=== PATIENT | female | born 1975 | race American Indian/Alaskan Native ===

== ENCOUNTER 2021-09-04 02:20 | Emergency (ER) | payer SELFPAY ==
[2021-09-04 02:44] VITALS: BP 162/87
[2021-09-04] MEDS ORDERED: HYDROcodone/ACETAMINOPHEN 5-325 MG TAB PO STA (02:58)
--- NOTE | 2021-09-04 03:01 | Emergency Department Report ---
ED Extremity Problem HPI - General Chief complaint: Extremity Injury, Lower Stated complaint: LT ANKLE PAIN Source: patient Mode of arrival: Ambulatory Limitations: No Limitations - History of Present Illness Initial comments: 45-year-old female [employer] [facility] emerge department complaining of a mechanical trip and fall in her home about 3 hours prior to arrival resulting in an inversion type twisting maneuver of the left ankle causing pain swelling and was significantly worsens with palpation and ambulation/weightbearing. She reports no numbness or tingling. No no pre-existing injury no prior injury. She reports no snap or pop MD Complaint: extremity pain, extremity swelling Location: lower extremity History of Same: No Worsens with: weight bearing, palpation - Related Data Previous Rx's Medication Instructions Recorded Last Taken Type Acetaminophen/Codeine [Tylenol 1 tab PO Q6H PRN #14 tab 09/04/21 Unknown Rx /Codeine # 3 tab] Allergies Allergy/AdvReac Type Severity Reaction Status Date / Time No Known Allergies Allergy Unverified 09/04/21 02:45 ED Review of Systems ROS: Stated complaint: LT ANKLE PAIN Other details as noted in HPI Comment: All other systems reviewed and negative ED Past Medical Hx - Past Medical History Previous Medical History?: No - Surgical History Past Surgical History?: No - Medications Home Medications: Home Medications Medication Instructions Recorded Confirmed Last Taken Type Acetaminophen/Codeine [Tylenol 1 tab PO Q6H PRN #14 tab 09/04/21 Unknown Rx /Codeine # 3 tab] ED Physical Exam - General Limitations: No Limitations General appearance: alert, in no apparent distress - Head Head exam: Present: atraumatic, normocephalic - Eye Eye exam: Present: normal appearance, PERRL, EOMI. Absent: scleral icterus, conjunctival injection, periorbital swelling, periorbital tenderness Pupils: Present: normal accommodation - ENT ENT exam: Present: mucous membranes moist - Neck Neck exam: Present: normal inspection - Respiratory Respiratory exam: Present: normal lung sounds bilaterally. Absent: respiratory distress, wheezes, rales, rhonchi, chest wall tenderness, accessory muscle use - Cardiovascular Cardiovascular Exam: Present: regular rate, normal rhythm. Absent: systolic murmur, diastolic murmur, rubs, gallop - GI/Abdominal GI/Abdominal exam: Present: soft, normal bowel sounds - Extremities Exam Extremities exam: Present: normal inspection, tenderness, normal capillary refill, pedal edema, joint swelling. Absent: calf tenderness - Expanded Lower Extremity Exam Left Ankle exam: Present: tenderness, swelling (To the lateral malleoli region). Absent: abrasion, laceration, ecchymosis, deformity, dislocation, erythema, anterior draw sign Foot/Toe exam: Present: normal inspection, full ROM Neuro vascular tendon exam: Present: no vascular compromise - Back Exam Back exam: Present: normal inspection - Neurological Exam Neurological exam: Present: alert, oriented X3 - Psychiatric Psychiatric exam: Present: normal affect, normal mood - Skin Skin exam: Present: warm, dry, intact, normal color. Absent: rash ED Course Vital Signs 09/04/21 09/04/21 02:38 04:17 Temperature 98.2 F Pulse Rate 76 Respiratory 16 16 Rate Blood Pressure 162/87 [Left] O2 Sat by Pulse 99 Oximetry - Orthopedic Splinting/Casting Injury #1 Side: left Lower Extremity Injury Location: ankle Lower Extremity Immobilizer: stirrup splint Other Orthopedic Equipment: crutches ED Medical Decision Making - Radiology Data Radiology results: report reviewed [address] [address] XRay Report Signed Patient: SAMMY ROLLINS MR#: [id number] : 1975 Acct:[id number] Age/Sex: 45 / F ADM Date: 09/04/21 Loc: ED Attending Dr: Ordering Physician: BELÉN BOSWELL MD Date of Service: 09/04/21 Procedure(s): XR ankle 3+V LT Accession Number(s): [id number] cc: BELÉN BOSWELL MD Fluoro Time In Minutes: LEFT ANKLE 3 VIEWS INDICATION / CLINICAL INFORMATION: fall COMPARISON: None available. FINDINGS: BONES / JOINT(S): Spiral fracture lateral malleolus. No significant arthritis. SOFT TISSUES: Localized lateral soft tissue swelling. Mild widening at the ankle mortise medially with overlying mild soft tissue swelling worrisome for ligamentous injury. Small joint effusion. ADDITIONAL FINDINGS: None. Signer Name: Mike Mendoza MD Signed: 09/04/2021 3:36 AM Workstation Name: [id number] Transcribed By: ES Dictated By: Mike Mendoza MD Electronically Authenticated By: Mike Mendoza MD Signed Date/Time: 09/04/21335 DD/ 2 TD/TT: - Medical Decision Making 45-year-old female status post trip and fall resulting in a fracture to the lateral malleoli region region. Pain was controlled with with oral analgesics and she was placed in a splint and crutches for immobilization. 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 Critical care attestation.: If time is entered above; I have spent that time in minutes in the direct care of this critically ill patient, excluding procedure time. ED Disposition Clinical Impression: Fracture of distal fibula Disposition: HOME / SELF CARE / HOMELESS Is pt being admited?: No Does the pt Need Aspirin: No Condition: Stable Instructions: Fibular Fracture Rehab-SportsMed, Cast or Splint Care, Adult, Crutch Use, Adult Prescriptions: Acetaminophen/Codeine [Tylenol /Codeine # 3 tab] 1 tab PO Q6H PRN #14 tab PRN Reason: Pain , Severe (7-10) Referrals: VANE WHEELER MD [Staff Physician] - 3-5 Days
--- NOTE | 2021-09-04 03:40 | XRay Report ---
LEFT ANKLE 3 VIEWS INDICATION / CLINICAL INFORMATION: fall COMPARISON: None available. FINDINGS: BONES / JOINT(S): Spiral fracture lateral malleolus. No significant arthritis. SOFT TISSUES: Localized lateral soft tissue swelling. Mild widening at the ankle mortise medially wit h overlying mild soft tissue swelling worrisome for ligamentous injury. Small joint effusion. ADDITIONAL FINDINGS: None. Signer Name: Mike Mendoza MD Signed: 09/04/2021 3:36 AM Workstation Name: [id number]
== END 2021-09-04 05:59 | disposition home or self-care (01) ==
LOC: ED 02:20
DX: S82.832A Other fracture of upper and lower end of left fibula, initial encounter for closed fracture (principal); Z79.899 Other long term (current) drug therapy; W01.0XXA Fall on same level from slipping, tripping and stumbling without subsequent striking against object, initial encounter; Y93.89 Activity, other specified; Y92.89 Other specified places as the place of occurrence of the external cause; Y99.8 Other external cause status
CPT/HCPCS: 99283